=== PATIENT | male | born 1950 | race Caucasian/White ===

== ENCOUNTER 2021-12-31 14:43 | Outpatient (CLI) | payer MEDICARE, SELFPAY ==
[2021-12-31 18:55] LABS: Basophils Percent Auto 0.6 % (0.2-1.2); Eosinophils Absolute Auto 0.2 K/mm3 (0-0.3); Eosinophils Percent Auto 2.5 % (0-4.4); Hematocrit 40.8 % (42.0-52.0); Hemoglobin 14.2 g/dL (14.0-18.0); Lymphocytes Absolute Auto 1.56 K/mm3 (0.9-3.2); Lymphocytes Percent Auto 24.8 % (18.3-44.2); Mean Corpuscular HGB Conc 34.8 g/dl (32-36); Mean Corpuscular Hemoglobin 34.5 pg (26-34); Mean Platelet Volume 10.7 fl (7.4-10.4); Monocytes Absolute Auto 0.8 K/mm3 (0.1-0.6); Monocytes Percent Auto 11.9 % (2.6-8.5); Neutrophils Absolute Auto 3.8 K/mm3 (1.3-6.7); Neutrophils Percent Auto 60.2 % (45.5-73.1); Platelet Count Result 252 k/mm3 (150-375); Red Blood Count 4.12 M/mm3 (4.6-6.20); Red Cell Distribution Width 11.8 % (11.5-14.5); White Blood Count 6.3 K/mm3 (4.5-10.0)
[2021-12-31 19:35] LABS: Vitamin D 25 Hydroxy 55.2 ng/mL
[2021-12-31 21:07] LABS: Alanine Aminotransferase 35 U/L (6-50); Albumin Level 5.3 g/dL (3.5-5.1); Alkaline Phosphatase 82 U/L (38-126); Anion Gap 16 mmol/L (8-16); Aspartate Amino Transferase 42 U/L (17-59); Blood Urea Nitrogen 23 mg/dL (9-20); Calcium 10.5 mg/dL (8.4-10.2); Carbon Dioxide 21 mmol/L (22-30); Chloride 109 mmol/L (98-107); Cholesterol 228 mg/dL (0-200); Estimated Glomerular Filt Rate > 60; Glucose 102 mg/dL (65-110); HDL Direct 56 mg/dL; Potassium 4.8 mmol/L (3.4-5.0); Sodium 146 mmol/L (137-145); Triglycerides 178 mg/dL (<150)
[2021-12-31 21:18] LABS: LDL Cholesterol Direct 98 mg/dL
[2021-12-31 21:36] LABS: Prostate Specific Antigen 1.2 ng/mL (< OR = 4.0)
== END 2021-12-31 14:44 | disposition home or self-care (01) ==
PROVIDERS: PCP Family Medicine; Visit Provider Family Medicine
DX: E78.89 Other lipoprotein metabolism disorders (principal); I10 Essential (primary) hypertension; E55.9 Vitamin D deficiency, unspecified; Z12.5 Encounter for screening for malignant neoplasm of prostate
CPT/HCPCS: 36415; 80053; 80061; 82306; 82607; 84153; 84443; 85025; G0103

== ENCOUNTER 2022-07-01 11:47 | Outpatient (CLI) | payer MEDICARE, SELFPAY ==
[2022-07-01 19:01] LABS: Alanine Aminotransferase 28 U/L (6-50); Albumin Level 4.5 g/dL (3.5-5.1); Alkaline Phosphatase 76 U/L (38-126); Anion Gap 8 mmol/L (8-16); Aspartate Amino Transferase 46 U/L (17-59); Bilirubin,Total 1.2 mg/dL (0.2-1.3); Blood Urea Nitrogen 19 mg/dL (9-20); Carbon Dioxide 28 mmol/L (22-30); Chloride 102 mmol/L (98-107); Estimated Glomerular Filt Rate > 60; Glucose 97 mg/dL (65-110); Sodium 138 mmol/L (137-145)
== END 2022-07-01 11:48 | disposition home or self-care (01) ==
LOC: ANHGOSHLAB 11:49
PROVIDERS: PCP Family Medicine; Visit Provider Family Medicine
DX: E78.5 Hyperlipidemia, unspecified (principal); I10 Essential (primary) hypertension; Z79.899 Other long term (current) drug therapy
CPT/HCPCS: 36415; 80053

== ENCOUNTER 2023-01-13 11:53 | Outpatient (CLI) | payer MEDICARE, SELFPAY ==
[2023-01-13 13:32] LABS: Basophils Percent Auto 0.7 % (0.2-1.2); Eosinophils Absolute Auto 0.2 K/mm3 (0-0.3); Eosinophils Percent Auto 4.1 % (0-4.4); Hematocrit 41.7 % (42.0-52.0); Hemoglobin 14.2 g/dL (14.0-18.0); Immature Granulocyte Absolute 0.01 K/mm3 (0.00-0.031); Immature Granulocyte Percent A 0.2 % (0-0.5); Lymphocytes Absolute Auto 1.41 K/mm3 (0.9-3.2); Lymphocytes Percent Auto 23.9 % (18.3-44.2); Mean Corpuscular HGB Conc 34.1 g/dl (32-36); Mean Corpuscular Volume 99.8 fl (80-100); Mean Platelet Volume 10.9 fl (7.4-10.4); Monocytes Absolute Auto 0.7 K/mm3 (0.1-0.6); Monocytes Percent Auto 11.7 % (2.6-8.5); Neutrophils Absolute Auto 3.5 K/mm3 (1.3-6.7); Neutrophils Percent Auto 59.4 % (45.5-73.1); Platelet Count Result 244 k/mm3 (150-375); Red Blood Count 4.18 M/mm3 (4.6-6.20); Red Cell Distribution Width 11.9 % (11.5-14.5); White Blood Count 5.9 K/mm3 (4.5-10.0)
[2023-01-13 13:50] LABS: Alanine Aminotransferase 30 U/L (6-50); Albumin Level 4.7 g/dL (3.5-5.1); Alkaline Phosphatase 73 U/L (38-126); Anion Gap 10 mmol/L (8-16); Aspartate Amino Transferase 46 U/L (17-59); Bilirubin,Total 1.2 mg/dL (0.2-1.3); Blood Urea Nitrogen 18 mg/dL (9-20); Calcium 9.6 mg/dL (8.4-10.2); Carbon Dioxide 26 mmol/L (22-30); Chloride 102 mmol/L (98-107); Cholesterol 191 mg/dL (0-200); Estimated Glomerular Filt Rate > 60; Glucose 104 mg/dL (65-110); HDL Direct 51 mg/dL; Potassium 4.6 mmol/L (3.4-5.0); Sodium 138 mmol/L (137-145); Triglycerides 175 mg/dL (<150)
[2023-01-13 14:07] LABS: LDL Cholesterol Direct 80 mg/dL
[2023-01-13 15:33] LABS: Vitamin D 25 Hydroxy 47.4 ng/mL
== END 2023-01-13 11:54 | disposition home or self-care (01) ==
LOC: ANHGOSHLAB 11:54
PROVIDERS: PCP Family Medicine; Visit Provider Family Medicine
DX: E78.5 Hyperlipidemia, unspecified (principal); E53.8 Deficiency of other specified B group vitamins; I10 Essential (primary) hypertension; Z12.5 Encounter for screening for malignant neoplasm of prostate; E55.9 Vitamin D deficiency, unspecified; Z00.00 Encounter for general adult medical examination without abnormal findings
CPT/HCPCS: 36415; 80053; 80061; 82306; 82607; 84153; 84443; 85025; G0103

== ENCOUNTER 2023-09-15 11:07 | Outpatient (CLI) | payer MEDICARE, SELFPAY ==
[2023-09-15 18:38] LABS: Basophils Absolute Auto 0.1 K/mm3 (0.0-0.1); Eosinophils Absolute Auto 0.3 K/mm3 (0-0.3); Eosinophils Percent Auto 4.2 % (0-4.4); Hematocrit 37.1 % (42.0-52.0); Hemoglobin 12.9 g/dL (14.0-18.0); Immature Granulocyte Absolute 0.02 K/mm3 (0.00-0.031); Immature Granulocyte Percent A 0.3 % (0-0.5); Lymphocytes Absolute Auto 1.42 K/mm3 (0.9-3.2); Lymphocytes Percent Auto 22.7 % (18.3-44.2); Mean Corpuscular HGB Conc 34.8 g/dl (32-36); Mean Corpuscular Hemoglobin 34.9 pg (26-34); Mean Corpuscular Volume 100.3 fl (80-100); Mean Platelet Volume 11.4 fl (7.4-10.4); Monocytes Absolute Auto 0.7 K/mm3 (0.1-0.6); Monocytes Percent Auto 11.5 % (2.6-8.5); Neutrophils Absolute Auto 3.8 K/mm3 (1.3-6.7); Neutrophils Percent Auto 60.3 % (45.5-73.1); Platelet Count Result 238 k/mm3 (150-375); Red Cell Distribution Width 11.9 % (11.5-14.5); White Blood Count 6.3 K/mm3 (4.5-10.0)
[2023-09-15 18:44] LABS: Alanine Aminotransferase 26 U/L (6-50); Albumin Level 4.6 g/dL (3.5-5.1); Alkaline Phosphatase 68 U/L (38-126); Anion Gap 11 mmol/L (4-12); Aspartate Amino Transferase 39 U/L (17-59); Bilirubin,Total 1.1 mg/dL (0.2-1.3); Blood Urea Nitrogen 28 mg/dL (9-20); Calcium 9.4 mg/dL (8.4-10.2); Carbon Dioxide 29 mmol/L (22-30); Chloride 98 mmol/L (98-107); Cholesterol 219 mg/dL (0-200); Estimated Glomerular Filt Rate > 60; Glucose 106 mg/dL (65-110); HDL Direct 45 mg/dL; Potassium 4.8 mmol/L (3.4-5.0); Sodium 138 mmol/L (137-145); Triglycerides 387 mg/dL (<150)
[2023-09-15 18:55] LABS: LDL Cholesterol Direct 42 mg/dL
[2023-09-18 15:13] LABS: Vitamin D 1,25 (OH)2 Total 43 pg/mL (18-72); Vitamin D2 1,25 (OH)2 <8 pg/mL; Vitamin D3 1,25 (OH)2 43 pg/mL
== END 2023-09-15 11:08 | disposition home or self-care (01) ==
LOC: ANHGOSHLAB 11:08
PROVIDERS: PCP Family Medicine; Visit Provider Nurse Practitioner Family
DX: E78.5 Hyperlipidemia, unspecified (principal); Z13.29 Encounter for screening for other suspected endocrine disorder; I10 Essential (primary) hypertension; E53.8 Deficiency of other specified B group vitamins; E55.9 Vitamin D deficiency, unspecified
CPT/HCPCS: 36415; 80053; 80061; 82607; 82652; 84443; 85025

== ENCOUNTER 2023-10-22 14:50 | Outpatient (CLI) | payer MEDICARE, SELFPAY ==
--- NOTE | ~2023-10-22 | XR_ITS ---
EXAMINATION: XR chest 2V 10/22/2023 15:03 INDICATION: Dyspnea PROCEDURE: 2 view chest COMPARISON: No prior studies for comparison. FINDINGS: The lungs are clear. The cardiomediastinal silhouette is within normal limits. There are no pleural effusions. There is no pneumothorax suspected. There are healed right old rib fractures. Moderate thoracic spondylosis. IMPRESSION: 1: NO ACUTE CARDIOPULMONARY DISEASE. Reviewed, dictated and finalized at location B.
== END 2023-10-22 14:51 | disposition home or self-care (01) ==
PROVIDERS: PCP Family Medicine; Visit Provider Family Medicine
DX: R09.89 Other specified symptoms and signs involving the circulatory and respiratory systems (principal)
CPT/HCPCS: 71046

== ENCOUNTER 2023-10-22 15:03 | Outpatient (CLI) | payer MEDICARE, SELFPAY ==
[2023-10-22 18:46] LABS: Basophils Absolute Auto 0.1 K/mm3 (0.0-0.1); Basophils Percent Auto 0.6 % (0.2-1.2); Eosinophils Absolute Auto 0.2 K/mm3 (0-0.3); Eosinophils Percent Auto 2.1 % (0-4.4); Hematocrit 41.1 % (42.0-52.0); Hemoglobin 13.8 g/dL (14.0-18.0); Immature Granulocyte Absolute 0.02 K/mm3 (0.00-0.031); Immature Granulocyte Percent A 0.2 % (0-0.5); Lymphocytes Percent Auto 19.5 % (18.3-44.2); Mean Corpuscular HGB Conc 33.6 g/dl (32-36); Mean Corpuscular Hemoglobin 34.7 pg (26-34); Mean Corpuscular Volume 103.3 fl (80-100); Mean Platelet Volume 11.1 fl (7.4-10.4); Neutrophils Absolute Auto 5.4 K/mm3 (1.3-6.7); Neutrophils Percent Auto 65.6 % (45.5-73.1); Platelet Count Result 256 k/mm3 (150-375); Red Blood Count 3.98 M/mm3 (4.6-6.20); Red Cell Distribution Width 11.9 % (11.5-14.5); White Blood Count 8.2 K/mm3 (4.5-10.0)
[2023-10-22 19:01] LABS: Alanine Aminotransferase 30 U/L (6-50); Albumin Level 4.7 g/dL (3.5-5.1); Alkaline Phosphatase 78 U/L (38-126); Anion Gap 10 mmol/L (4-12); Aspartate Amino Transferase 46 U/L (17-59); Blood Urea Nitrogen 26 mg/dL (9-20); Calcium 9.4 mg/dL (8.4-10.2); Carbon Dioxide 28 mmol/L (22-30); Chloride 99 mmol/L (98-107); Estimated Glomerular Filt Rate > 60; Glucose 94 mg/dL (65-110); Potassium 4.5 mmol/L (3.4-5.0); Sodium 137 mmol/L (137-145)
[2023-10-22 19:06] LABS: Iron 150 ug/dL (49-181)
[2023-10-22 19:15] LABS: Percent Iron Saturation 54 % (20-50)
[2023-10-22 20:09] LABS: Folic Acid > 20.0 ng/mL (2.76->20)
== END 2023-10-22 15:04 | disposition home or self-care (01) ==
LOC: ANHGOSHLAB 15:04
PROVIDERS: PCP Family Medicine; Visit Provider Family Medicine
DX: D64.9 Anemia, unspecified (principal); R55 Syncope and collapse; R42 Dizziness and giddiness; I10 Essential (primary) hypertension; Z00.00 Encounter for general adult medical examination without abnormal findings
CPT/HCPCS: 36415; 80053; 82607; 82728; 82746; 83540; 83550; 85025

== ENCOUNTER 2023-11-04 10:23 | Outpatient (CLI) | payer MEDICARE, SELFPAY ==
--- NOTE | 2023-11-06 17:07 | WPDHOLTEREM ---
Holter/Event Monitor Holter/Event Monitor Date of procedure: 11/04/23 Holter/Event Procedure: 48 Hr Holter Monitor Indications: Syncope Conclusion: 1. 48 hour holter monitor on 11/04/23. 2. Underlying rhythm is sinus rhythm. HR range 56-115 bpm; average 77 bpm. 3. There are 383 premature supraventricular complexes, 12 supraventricular couplets and 1 supraventricular triplet. No supraventricular tachycardia. 4. There are 1,172 premature ventricular complexes, 81 ventricular bigeminy. No ventricular tachycardia. 5. No sinoatrial or atrioventricular blocks. No significant pauses greater than 2 seconds. 6. No symptoms available for correlation.
== END 2023-11-04 10:24 | disposition home or self-care (01) ==
PROVIDERS: PCP Family Medicine; Visit Provider Family Medicine
DX: R55 Syncope and collapse (principal); R42 Dizziness and giddiness
CPT/HCPCS: 93225; 93226

== ENCOUNTER 2023-11-26 08:17 | Outpatient (CLI) | payer MEDICARE, SELFPAY ==
--- NOTE | ~2023-11-26 | MR_ITS ---
EXAMINATION: MR brain/brain stem wo/w con DATE: 11/26/2023 09:35 INDICATION: Syncope and collapse. TECHNIQUE: Magnetic resonance imaging (MRI) of the brain and brainstem was performed without and with 18 mL MultiHance intravenous contrast. COMPARISON: None. FINDINGS: There are scattered areas of nonspecific increased T2-weighted signal intensity in the cere bral white matter. There is no intracranial hemorrhage, acute infarction, or abnormal intracranial ma ss lesion. The ventricles are normal in size. There are likely changes of ocular lens replacement ebenezer geries. There is mild mucosal thickening in the paranasal sinuses. The mastoid air cells are normal. IMPRESSION: 1. Mild nonspecific cerebral white matter disease, which likely represents chronic small vessel ische alberto disease. Reviewed, dictated and finalized at location A. IMPRESSION: 1. Mild nonspecific cerebral white matter disease, which likely represents green chain puller jayleen small vessel ischemic disease.
--- NOTE | ~2023-11-26 | US_ITS ---
EXAMINATION: US carotid duplex BI DATE: 11/26/2023 09:05 INDICATION: Syncope and collapse. TECHNIQUE: Grayscale, color Doppler, and pulsed Doppler images of the cervical carotid arteries were obtained. The degree of vessel stenosis is placed in one of the following categories: normal, <50%, 5 0-69%, >=70% but less than near-occlusion, near-occlusion, or total occlusion. Note that percent sten osis relative to normal distal artery lumen diameter is indirectly measured from velocity measurement s as described by Khanh, et al. Radiology 2003; 229:340-346. COMPARISON: None. FINDINGS: RIGHT: The right common carotid artery (CCA) peak systolic velocity (PSV) is 80 cm/s. The right internal car otid artery (ICA) PSV is 111 cm/s. The right ICA end-diastolic velocity (EDV) is 31 cm/s. The right I CA/CCA PSV ratio is 1.4. Grayscale and color Doppler images yield an estimate of <50% diameter reduct ion from plaque in the ICA. There is antegrade flow in the right vertebral artery. LEFT: The left CCA PSV is 109 cm/s. The left ICA PSV is 96 cm/s. The left ICA EDV is 38 cm/s. The left ICA/ CCA PSV ratio is 0.9. Grayscale and color Doppler images yield an estimate of <50% diameter reduction from plaque in the ICA. There is antegrade flow in the left vertebral artery. IMPRESSION: 1. <50% stenosis in the right internal carotid artery. 2. <50% stenosis in the left internal carotid artery. Reviewed, dictated and finalized at location A.
== END 2023-11-26 08:18 | disposition home or self-care (01) ==
LOC: ANHIMG 08:20
PROVIDERS: PCP Family Medicine; Visit Provider Family Medicine
DX: R55 Syncope and collapse (principal); R42 Dizziness and giddiness; I65.23 Occlusion and stenosis of bilateral carotid arteries; R90.82 White matter disease, unspecified
CPT/HCPCS: 70553; 93880; A9577

== ENCOUNTER 2023-12-31 08:14 | Outpatient (CLI) | payer MEDICARE, SELFPAY ==
[2024-01-24 11:24] VITALS: BMI 31.9
--- NOTE | 2024-01-24 11:24 | WPDSLEEPSTUD ---
Sleep Study Date of Study: 12/31/23 Ordering Provider: Reg Sosa MD Interpreting Physician: Radha Bill DO Sleep Study Type: Split Polysomnogram Height: 1.7 m Weight: 92.533 kg Body Mass Index: 31.9 Neck Circumference (inches): 17 [place]: 3 Reason for Sleep Study Snoring Sleep History The patient is a 73-year-old that had sleep study ordered by his primary care physician for evaluation of sleep apnea the patient denies awakening from sleep short of breath. He denies awakening at night with heartburn, belching or cough. He occasionally snores and 8 is occasionally loud enough that others complain. He occasionally has trouble sleeping when he has a cold. He denies waking up gasping for air throughout the night. He denies having breathing problems at night observed by himself or others. He rarely sweats excessively at night. He denies having heart palpitations or irregular heartbeats during the night. He occasionally falls asleep during the day but never while driving. He denies sleep paralysis, cataplexy and hypnagogic / hypnopompic hallucinations. He denies having trouble at school or work due to sleepiness. He denies feeling afraid of going to sleep. He denies having nightmares. He frequently remembers his dreams. He occasionally has thoughts racing through his mind. He rarely feels sad or depressed. He frequently has anxiety. He frequently has muscular tension. He occasionally notices parts of his body jerk and occasionally kicks during the night. He frequently has crawling and aching feelings in his legs and occasionally has leg pain during the night. He occasionally grinds his teeth during sleep but never awakens with morning jaw pain. He is occasionally bothered by pain during the day but rarely awakened by pain during the night. He frequently wakes up feeling stiff in the morning. He frequently wakes up with sore or achy muscles. He occasionally wakes up with pain in the neck spine or other joints. He goes to bed at 10:00 p.m. on both weekdays and weekends. It takes him 10-30 minutes to fall asleep. He wakes up 3 times throughout the night to urinate and is able to fall back asleep within 20 minutes. He wakes up at 7:30 a.m. on both weekdays and weekends. He typically gets 8 hours of sleep per night. He was stays in bed for 5 minutes after waking up in the morning. He currently lives with his . He denies consuming any caffeinated beverages within 2 hours of bedtime. He will engage in physical exercise before bedtime. He will watch television before falling asleep. He denies taking naps in the afternoon or the evening. He denies consuming any caffeinated beverages throughout the day. He consumes 3 alcoholic beverages per day. He is a former smoker. He denies recreational drug use. [facility] Past Medical History Medical History Dyslipidemia Essential (primary) hypertension Normal colonoscopy (~2017) Surgical History Surgical History H/O cataract removal with insertion of prosthetic lens b/l - 11/2016 History of carpal tunnel release of both wrists (~2015) Hx of appendectomy (~1961) Family History Family History Father Family history of diabetes mellitus in first degree relative Family history of heart disease in male family member before age 55 Diabetes mellitus Family history of cardiovascular disease Social History Social History Social History: Former smoker Smoking packs per day: 0.5 Smoking cigarettes per day: 10.0 Years smoked: 8 Smoking pack-years: 4.00 Smoking status: Former smoker (light smoker) Tobacco type: cigarettes Smoking end date: 02/16/15 Alcohol intake: current Drinks per week: 20 Substance use: never Do You Feel Safe in your Home?: Yes Lack of Transportation: No Lack of Food: Never True Current Housing: I Have Housing Concerned About Future Housing: No Difficulty Paying Gas/Electric Bills: No Difficulty Paying for Meds: No Currently Unemployed: No Education: High School Diploma/GED Difficulty w/ Childcare or Family Care: No Medications Home Medications Medication Instructions Recorded Confirmed Type lisinopril 20 1 tablet PO DAILY #90 tabs 09/09/23 12/07/23 Rx mg-hydrochlorothiazide 25 mg tablet atorvastatin 20 mg tablet 20 mg PO QHS #90 tabs 09/10/23 12/07/23 Rx metoprolol succinate 50 mg 50 mg PO DAILY #90 tabs 09/10/23 12/07/23 Rx tablet,extended release 24 hr eszopiclone 2 mg tablet (Lunesta) 2 mg PO QHS #1 tablet 11/10/23 12/07/23 Rx Sleep Procedure A full night split study using the [employer] multi-channel system recorded the standard physiologic parameters including EEG, EOG, submentalis EMG, anterior tibialis EMG, EKG, body position, nasal and oral airflow using nasal pressure sensor and thermistor.? Respiratory parameters of chest and abdominal movements were recorded with Respiratory Inductance Plethysmography belts. Oxygen saturation was recorded by pulse oximetry. Video monitoring was also performed. Sleep stages, periodic limb movements, and EEG arousals were scored in 30 second epochs according to the criteria of the AASM Scoring Manual. The Apnea-Hypopnea Index was calculated using [facility] guidelines for definition of hypopnea with 4% O2 desaturations while scoring respiratory events. Sleep Architecture During the diagnostic portion of the study, the total recording time was 280.3 minutes. The total sleep time was 160.5 minutes. Sleep latency was 77.2 minutes.? REM latency was 152.5 minutes. Sleep Efficiency was 57.3%. The patient had 11 awakenings for an awakening index of 4.1. Wake after sleep onset time was 42.5 minutes. The patient spent 19.0 minutes, 11.8% of total sleep time in Stage N1. The patient spent 121.5 minutes, 75.7% in Stage N2. The patient spent 0.0 minutes, 0.0% in Stage N3. The patient spent 20.0 minutes, 12.5% in Stage REM sleep. At 01:59:59 AM the patient was placed on PAP treatment and was titrated at pressures ranging from 5 cm H20 up to 7 cm H20. During the treatment portion of the study, the total recording time was 253.6 minutes.? The total sleep time was 174.0 minutes. Sleep latency was 22.5 minutes. REM latency was 78.5 minutes. Sleep Efficiency was 68.6%. Wake after Sleep Onset time was 57.0 minutes. The patient spent 18.5 minutes, 10.6% of total sleep time in Stage N1. The patient spent 99.5 minutes, 57.2% in Stage N2. The patient spent 0.0 minutes, 0.0% in Stage N3. The patient spent 56.0 minutes, 32.2% in Stage REM. Respiratory Analysis During the diagnostic portion of the study, the patient had 17 hypopneas and 15 obstructive apneas for an overall Apnea Hypopnea Index of 12.0 events per hour. The REM Apnea Hypopnea Index was 63.0. The NREM Apnea Hypopnea Index was 4.7. The patient had a Central Apnea Hypopnea Index of 0. There was no evidence of Ap-Cao Respirations. During the treatment portion of the study, the patient had 11 hypopneas for an overall Apnea Hypopnea Index of 3.8 events per hour. The REM Apnea Hypopnea Index was 4.3. The NREM Apnea Hypopnea Index was 3.6. The patient had a Central Apnea Hypopnea Index of 0. There was no evidence of Ap-Coa Respirations. The patient was started on CPAP 5 cm H2O titrated to CPAP 7 cm H2O due to hypopneas. The patient was able to fall asleep starting on CPAP 5 cm H2O. The patient was able to achieve REM sleep starting on CPAP 5 cm H2O. The patient was able to achieve a residual AHI less than 5 with both NREM and REM sleep in the supine position on the final pressure setting. On CPAP 7 cm H2O, the patient spent 41 minutes in NREM and 29.5 minutes in REM with 2 hypopneas, resulting in an AHI of 1.7. The patient had a sleep efficiency of 56% on this pressure setting. Arousals During the diagnostic portion of the study, there were a total of 79 arousals for an arousal index of 29.5.? There were 8 respiratory arousals for an index of 3.0. There were 65 periodic limb movement arousals for an index of 24.3.? There were 0 isolated limb movement arousals for an index of 0. There were 7 spontaneous arousals for an index of 2.6. During the treatment portion of the study, there were a total of 34 arousals for an index of 11.7.? There were 0 respiratory arousals for an index of 0. There were 31 periodic limb movement arousals for an index of 10.7.? There were 0 isolated limb movement arousals for an index of 0. There were 3 spontaneous arousals for an index of 1.0. Periodic Limb Movements During the diagnostic portion of the study, the patient had 9 isolated limb movements with an index of 3.4. The patient had 570 periodic limb movements with an index of 213.1, which is elevated (normal < 15). The patient had a total of 579 limb movements with a total limb movement index of 216.4. During the treatment portion of the study, the patient had 0 isolated limb movements with an index of 0. The patient had 331 periodic limb movements with an index of 114.1, which is elevated (normal < 15). The patient had a total of 331 limb movements with a total limb movement index of 114.1. Oximetry Data During the diagnostic portion of the study, the patient had an average oxygen saturation of 93.3% in wake with a minimum oxygen saturation of 86% and a maximum oxygen saturation of 98%. The patient had an average oxygen saturation of 93.3% in sleep with a minimum oxygen saturation of 70.0% and a maximum oxygen saturation of 98.0%. The patient had 33 oxygen desaturations resulting in an Oxygen Desaturation Index of 12.3. The patient spent 5.8 minutes, 2.2% of total sleep time with an oxygen saturation less than 88%. During the treatment portion of the study, the patient had an average oxygen saturation of 94.3% in wake with a minimum oxygen saturation of 88.0% and a maximum oxygen saturation of 98.0%. The patient had an average oxygen saturation of 93.1% in sleep with a minimum oxygen saturation of 86.0% and a maximum oxygen saturation of 98.0%. The patient had 12 oxygen desaturations resulting in an Oxygen Desaturation Index of 4.1. The patient spent 0.8 minutes, 0.3% of total sleep time with an oxygen saturation less than 88%. Snoring Profile Mild snoring was present in the baseline portion of the study. Cardiac Profile The EKG lead shows normal sinus rhythm. No arrhythmias or PVCs were seen. During the diagnostic portion of the study, the average pulse rate was 74.8 bpm.? The minimum pulse rate was 54.0 bpm. The maximum pulse rate was 95.0 bpm. During the treatment portion of the study, the average pulse rate was 67.4 bpm.? The minimum pulse rate was 60.0 bpm. The maximum pulse rate was 89.0 bpm. EEG Profile No signs of seizure activity seen. Assessment and Plan Assessment and Plan (1) KAY (obstructive sleep apnea): Code(s): G47.33 - Obstructive sleep apnea (adult) (pediatric) Status: Acute Assessment and Plan: In the baseline portion of the study, the patient had an overall AHI of 12 with desaturation down to 70%. This is consistent with mild sleep apnea. Due to the patient's hypertension, he qualifies for PAP therapy. The patient was started on CPAP 5 cm H2O titrated to CPAP 7 cm H2O due to hypopneas. The patient's sleep apnea resolved on the final pressure but his sleep efficiency was relatively low. I recommend that the patient be prescribed CPAP 6 cm H2O, size medium Resmed N30i mask, CPAP filters/tubing and heated humidity. This should be used with all episodes of sleep.? Compliance should be reviewed within 31-90 days of starting therapy for usage greater than 4 hours per night greater than 70% of the nights. The patient should be asked about symptoms such as?excessive daytime sleepiness, quality of sleep, decreased nocturia, increased?mental functioning such as memory, mood, and concentration. (2) PLMD (periodic limb movement disorder): Code(s): G47.61 - Periodic limb movement disorder Status: Acute Assessment and Plan: The patient had a significant number of limb movements during the study with the majority being periodic in nature. Approximately 10% of the periodic limb movements caused arousals in his sleep. The patient's sleep history is highly suggestive of Restless Leg Syndrome. I recommend that the patient have a serum ferritin drawn for evaluation of iron deficiency anemia. If the patient has a serum ferritin less than 75 ng/mL, I recommend starting a daily iron supplement and a Vitamin C supplement for better absorption. If the serum ferritin is greater than 75 ng/mL, I recommend starting a dopamine agonist and titrating the dose until symptoms resolve. There are nonpharmacological methods to treat limb movements including daily exercise, stretching calf muscles before bed, avoiding excessive amounts of caffeine and alcohol, vitamin B supplementation, magnesium lotion massaged into legs before bed, and use of a weighted blanket. Data The data obtained during this sleep study is adequate for interpretation. Certification This sleep study has been reviewed by a board certified sleep medicine physician.
== END 2024-01-01 06:42 | disposition home or self-care (01) ==
LOC: ANHCSM 08:15
PROVIDERS: PCP Family Medicine; Visit Provider Family Medicine
DX: G47.33 Obstructive sleep apnea (adult) (pediatric) (principal); G47.61 Periodic limb movement disorder; G47.10 Hypersomnia, unspecified; R40.0 Somnolence
CPT/HCPCS: 95811

== ENCOUNTER 2024-03-02 11:34 | Outpatient (CLI) | payer MEDICARE, SELFPAY ==
[2024-03-02 15:08] LABS: Basophils Absolute Auto 0.1 K/mm3 (0.0-0.1); Basophils Percent Auto 0.7 % (0.2-1.2); Eosinophils Absolute Auto 0.3 K/mm3 (0-0.3); Eosinophils Percent Auto 4.5 % (0-4.4); Hematocrit 41.3 % (42.0-52.0); Hemoglobin 14.1 g/dL (14.0-18.0); Immature Granulocyte Absolute 0.01 K/mm3 (0.00-0.031); Immature Granulocyte Percent A 0.1 % (0-0.5); Lymphocytes Absolute Auto 1.47 K/mm3 (0.9-3.2); Lymphocytes Percent Auto 21.4 % (18.3-44.2); Mean Corpuscular HGB Conc 34.1 g/dl (32-36); Mean Corpuscular Hemoglobin 33.4 pg (26-34); Mean Corpuscular Volume 97.9 fl (80-100); Mean Platelet Volume 11.2 fl (7.4-10.4); Monocytes Absolute Auto 0.7 K/mm3 (0.1-0.6); Monocytes Percent Auto 10.3 % (2.6-8.5); Neutrophils Absolute Auto 4.3 K/mm3 (1.3-6.7); Platelet Count Result 265 k/mm3 (150-375); Red Blood Count 4.22 M/mm3 (4.6-6.20); Red Cell Distribution Width 11.9 % (11.5-14.5); White Blood Count 6.9 K/mm3 (4.5-10.0)
[2024-03-02 16:15] LABS: Alanine Aminotransferase 33 U/L (6-50); Albumin Level 4.7 g/dL (3.5-5.1); Alkaline Phosphatase 80 U/L (38-126); Anion Gap 9 mmol/L (4-12); Aspartate Amino Transferase 69 U/L (17-59); Bilirubin,Total 1.4 mg/dL (0.2-1.3); Blood Urea Nitrogen 20 mg/dL (9-20); Calcium 9.6 mg/dL (8.4-10.2); Carbon Dioxide 26 mmol/L (22-30); Chloride 102 mmol/L (98-107); Cholesterol 192 mg/dL (0-200); Estimated Glomerular Filt Rate > 60; Glucose 104 mg/dL (65-110); HDL Direct 41 mg/dL; Potassium 4.1 mmol/L (3.4-5.0); Sodium 137 mmol/L (137-145); Triglycerides 271 mg/dL (<150)
[2024-03-02 16:29] LABS: LDL Cholesterol Direct 66 mg/dL
[2024-03-02 16:48] LABS: Prostate Specific Antigen 1.2 ng/mL (< OR = 4.0)
[2024-03-02 17:39] LABS: Vitamin D 25 Hydroxy 55.1 ng/mL
[2024-03-02 17:53] LABS: Thyroid Stimulating Hormone Reflex 0.896 uIU/mL (0.465-4.68)
[2024-03-02 19:40] LABS: Hemoglobin A1C 5.1 % (<5.7)
== END 2024-03-02 11:35 | disposition home or self-care (01) ==
LOC: ANHGOSHLAB 11:35
PROVIDERS: PCP Family Medicine; Visit Provider Family Medicine
DX: I10 Essential (primary) hypertension (principal); R73.9 Hyperglycemia, unspecified; G47.61 Periodic limb movement disorder; E55.9 Vitamin D deficiency, unspecified; Z12.5 Encounter for screening for malignant neoplasm of prostate; Z00.00 Encounter for general adult medical examination without abnormal findings; E53.8 Deficiency of other specified B group vitamins; E78.5 Hyperlipidemia, unspecified; D64.9 Anemia, unspecified
CPT/HCPCS: 36415; 80053; 80061; 82306; 82607; 82728; 83036; 84153; 84443; 85025; G0103

== ENCOUNTER 2024-05-31 14:32 | Outpatient (CLI) | payer MEDICARE, SELFPAY ==
[2024-05-31 14:51] LABS: Basophils Absolute Auto 0.1 K/mm3 (0.0-0.1); Basophils Percent Auto 0.6 % (0.2-1.2); Eosinophils Absolute Auto 0.3 K/mm3 (0-0.3); Eosinophils Percent Auto 3.4 % (0-4.4); Hematocrit 37.2 % (42.0-52.0); Hemoglobin 13.4 g/dL (14.0-18.0); Immature Granulocyte Absolute 0.03 K/mm3 (0.00-0.031); Immature Granulocyte Percent A 0.4 % (0-0.5); Lymphocytes Absolute Auto 1.61 K/mm3 (0.9-3.2); Lymphocytes Percent Auto 20.1 % (18.3-44.2); Mean Corpuscular Hemoglobin 34.4 pg (26-34); Mean Corpuscular Volume 95.4 fl (80-100); Mean Platelet Volume 9.4 fl (7.4-10.4); Monocytes Absolute Auto 0.9 K/mm3 (0.1-0.6); Monocytes Percent Auto 11.6 % (2.6-8.5); Neutrophils Absolute Auto 5.1 K/mm3 (1.3-6.7); Neutrophils Percent Auto 63.9 % (45.5-73.1); Platelet Count Result 287 k/mm3 (150-375); Red Cell Distribution Width 11.5 % (11.5-14.5)
--- OUTSIDE RECORDS SUMMARY | 2024-05-31 15:41 | XMS_ITS | Clinical Summary ---
Author Organization [facility] Wilburxochitl decker Alondra Address [address] [place] [address] Care Team Providers Care Lead C Developer Name Role Phone Unavailable Primary Care Provider Unavailabl e Allergies No known active allergies Medications lisinopril-hydr oCHLOROthiazide (ZESTORETIC) 20-25 mg tablet Take 1 Tablet by mouth 2 times daily. 5 Active metoprolol succinate (TOPROL XL) 50 mg Extended Release 24 hour tablet Take 50 mg by mouth daily. 5 Active rOPINIRole (REQUIP) 0.5 mg tablet Take 0.5 mg by mouth 3 times daily. 5 Active atorvastatin (LIPITOR) 20 mg tablet Take 20 mg by mouth daily. 5 Active fenofibrate (LOFIBRA) 160 mg Tablet 160 mg by See Admin Instructions route daily. 5 Active Active Problems No known active problems Encounters Date Type Department Care Team Description 05/31/2024 1:30 PM CDT Office Visit [facility] Oncology and Hematology - [place] [address] [facility] [address] [place] [address] Kalia Fonseca MD Iron overload (Primary Dx) from Last 3 Months Family History Medical History Relation Name Comments No Known Problems Brother 1 No Known Problems Brother 2 Diabetes Father No Known Problems Mother No Known Problems Sister 1 No Known Problems Sister 2 No Known Problems Sister 3 No Known Problems Sister 4 Relation Name Status Comments Brother 1 Alive Brother 2 Father Mother Sister 1 Alive Sister 2 Sister 3 Sister 4 Social History Tobacco Use Types Packs/Day Years Used Date Smoking Tobacco: Never Smokeless Tobacco: Never Tobacco Cessation:Counseling Given: Not Answered Alcohol Use Standard Drinks/Week Comments Yes 4 (1 standard drink = 0.6 oz pur e alcohol) Everyday Sex and Gender Information Value Date Recorded Sex Assigned at Not on file Legal Sex Male 3:27 PM [employer] Gender Identity Not on file Sexual Orientation Not on file Last Filed Vital Signs Vital Sign Reading Time Taken Comments Blood Pressure 129/64 05/31/2024 1:30 PM CDT Pulse 71 05/31/2024 1:30 PM CDT Temperature 36.3 C (97.3 F) 05/31/2024 1:30 PM CDT Respiratory Rate 15 05/31/2024 1:30 PM CDT Oxygen Saturation 96% 05/31/2024 1:30 PM CDT Inhaled Oxygen Concentration - - Weight 93.4 kg (205 lb 12.8 oz) 05/31/2024 1:30 PM CDT Height 170.2 cm (5' 7 ) 05/31/2024 1:30 PM CDT Body Mass Index 32.23 05/31/2024 1:30 PM CDT Plan of Treatment Upcoming Encounters Date Type Department Care Team (Late st Contact Info) Description 06/21/2024 4:00 PM CDT Telephone Check Up [facility] Oncology and Hematology - [place] [address] [facility] [address] [place] [address] Kalia Fonseca MD [address] [place] [address] Health Maintenance Due Date Last Done Comments DTAP/TDAP/TD VACCINES (1 - Tdap) 12/18/1970 COLORECTAL SCREENING 12/18/1996 Colorectal Cancer Screening 12/18/1996 FIT-DNA Q 3 years 12/18/1996 FIT/FOBT Q 1 year 12/18/1996 Flex Sig/CT Colonography Q 5 years 12/18/1996 PNEUMOCOCCAL VACCINE 50+ YEARS (1 of 1 - PCV) 12/19/19 02 ZOSTER VACCINE (1 of 2) 12/18/2001 INFLUENZA VACCINE (#1) 2023 [place]) Prev entative Visit/Annual Wellness Visit 02/17/2024 RSV VACCINE (60+ or ) (1 - 1-dose 75+ series) 12/18/2026 Insurance [employer] PPO [facility]
--- OUTSIDE RECORDS SUMMARY | 2024-05-31 15:41 | XMS_ITS | Encounter Summary ---
Author Organization [facility] AL[facility] Address [address] [place] [address] Care Team Providers Care Cosmetics Counter Manager Name Role Phone Unavailable Primary Care Provider Unavailabl e Reason for Referral * Laboratory Services (Routine) - Open Specialty Diagnoses / Procedures Referred By Gianna t Referred To Contact Diagnoses Iron overload Procedures HEMOCHROMATOSIS GENOTYPE Kalia Fonseca MD [address] [place] [phone] Phone: tel: fax: Referral ID Status Reason Start Date Expiration Date Visits Re quested Visits Authorized [id number] Open 05/31/2024 07/01/2025 1 1 Reason for Visit * Reason Comments Establish Care Encounter Details Date Type Department Care Team (Late st Contact Info) Description 05/31/2024 1:30 PM CDT Office Visit [facility] Oncology and Hematology - Feng [address] [place] [address] [address] [place] [address] Kalia Fonseca MD [facility] [address] [place] [address] Iron overload (Primary Dx) Social History Tobacco Use Types Packs/Day Years Used Date Smoking Tobacco: Never Smokeless Tobacco: Never Tobacco Cessation:Counseling Given: Not Answered Alcohol Use Standard Drinks/Week Comments Yes 4 (1 standard drink = 0.6 oz pur e alcohol) Everyday Sex and Gender Information Value Date Recorded Sex Assigned at Not on file 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 Problem list There is no problem list on file for this patient. Previous TREATMENT ? Measurable Disease ? Reason for Visit Yuval Quach is a 73 y.o. male who was referred for consultation for elevated ferritin. History of present illness This is a pleasant 73-year-old male with history of hypertension, hyperlipidemia, restless leg syndrome, obstructive sleep apnea and history of COVID referred to me for elevated ferritin. He drinks a couple of beers a day and has been doing it for more than 50 years duration. He denies any history of liver disease. Denies any chest pain and shortness of breath. Weight and appetite stable. Patient had labs done on March 02 that showed ferritin of 324. He denies any history of liver disease. Denies any other new complaints. Past Medical History Past Medical History: Diagnosis Date Hyperlipidemia Hypertension Sleep apnea Restless leg syndrome History of COVID infection Surgical History Past Surgical History: Procedure Laterality Date HX APPENDECTOMY 1960 HX CARPAL TUNNEL RELEASE 2015 HX CATARACT REMOVAL 2014 Medications Current Outpatient Medications Medication Sig Dispense Refill lisinopril-hydroCHLOROthiazide (ZESTORETIC) 20-25 mg tablet Take 1 Tablet by mouth 2 times daily. metoprolol succinate (TOPROL XL) 50 mg Extended Release 24 hour tablet Take 50 mg by mouth daily. rOPINIRole (REQUIP) 0.5 mg tablet Take 0.5 mg by mouth 3 times daily. atorvastatin (LIPITOR) 20 mg tablet Take 20 mg by mouth daily. fenofibrate (LOFIBRA) 160 mg Tablet 160 mg by See Admin Instructions route daily. No current facility-administered medications for this visit. Allergies No Known Allergies Immunizations: There is no immunization history on file for this patient. Family History Family History Problem Relation Name Age of Onset Diabetes Father No Known Problems Mother No Known Problems Brother No Known Problems Brother No Known Problems Sister No Known Problems Sister No Known Problems Sister No Known Problems Sister Social History Social History Tobacco Use Smoking status: Never Smokeless tobacco: Never Substance Use Topics Alcohol use: Yes Alcohol/week: 4.0 standard drinks of alcohol Types: 4 Cans of beer per week Comment: Everyday Review of Systems Constitutional: Patient did not mention fever; no night sweats; no anorexia; no weight loss; no fatique NEENT: Patient did not mention headache; no change in vision; no change in hearing; no sore throat;no dysphagia Respiratory: Patient did not mention shortness of breath; no pleuritic chest pain; no cough; no hemoptysis Cardiac: Patient did not mention cardiac-like chest pain; no palpitations; no orthopnea; no PND; noDOE GI: Patient did not mention abdominal pain; no nausea; no vomiting; no diarrhea; no hematochezia; no melena : Patient did not mention dysuria; no frequency; no hesitancy; no hematuria ROOM SERVER: Musculosketetal: Patient did not mention bone pain; no arthralgia; no joint swelling; no myalgia; Skin: Patient did not mention pruritis; no rash; no petechiae; no ecchymoses Endocrine: Patient did not mention polydipsia; no polyuria; no unusual weight gain Neuro: Patient did not mention headache; no change in vision; no sensory changes; no muscle weakness; no confusion; no seizures Psych: Patient did not mention anxiety; no depression; Physical Exam Vitals: As per nursing note Constitutional: Well developed, well nourished, no acute distress, non-toxic appearance Teeth and gum. No signs of infection or swelling. Eyes: PERRL, conjunctiva normal HEENT: Atraumatic, external ears normal, nose normal, oropharynx moist, no pharyngeal exudates. no sinus tenderness Neck- normal range of motion, no tenderness, supple Respiratory: No respiratory distress, normal breath sounds, no rales, no wheezing Cardiovascular: Normal rate, normal rhythm, no murmurs, no gallops, no rubs GI: Soft, nondistended, normal bowel sounds, nontender, no splenomegaly, no hepatomegaly, no mass, no rebound, no guarding : No costovertebral angle tenderness Musculoskeletal: No edema, no tenderness, no deformities. Back- no tenderness Integument: Well hydrated, no rash, Digits and nails inspection normal Lymphatic: No lymphadenopathy noted Neurologic: Alert & oriented x 3, CN 2-12 normal, normal motor function, normal sensory function, no focal deficits noted Psychiatric: Speech and behavior appropriate ? labs No results found for this or any previous visit (from the past 24 hours). Labs from March 02, 2024 showed ferritin 324 total bilirubin 1.4 AST 69 ALT 33 creatinine 0.8 WBC6.9 hemoglobin 14.1 hematocrit 41.3 platelets 265 Pathology ? Imaging & Other Studies Performance Status? Assessment / Plan: ? Elevated ferritin. Patient is a pleasant 73-year-old slightly obese male with history of hypertension, hyperlipidemia, obstructive sleep apnea, restless leg syndrome and history of COVID. He denies any history of liver disease. He drinks couple of beers a day for more than 50 years duration. Patient denies any recent weight gain. Recent labs showed elevated serum ferritin and elevated liver enzymes. I have reviewed the diagnosis of iron overload which could be secondary to hemochromatosis versus alcohol abuse. In this case likely secondary to alcohol intake. I will order the workup that will include CBC, CMP, liver profile, iron studies and hemochromatosis genetic testing. Based on the results we will decide about phlebotomy to keep ferritin less than 200. I have strongly recommended him to lose weight and abstinence from drinking. He will also avoid iron containing food. Phone visit with me in 3 weeks. I have answered all questions to patient and the daughter satisfaction. Hyperlipidemia. Patient is on Lipitor. Hypertension. He is on Toprol and Zestril. Restless leg syndrome. Patient is on Requip. Thank you very much for allowing me to participate in Yuval Quach's evaluation and management. Please feel free to contact if I can be of any further assistance in your patient???s care requiring hematology or oncology evaluation. Sincerely, ? ? Kalia Fonseca M.D. cell TOBACCO COUNSELING He is not a tobacco/nicotine user. Kalia Fonseca MD ,05/31/2024 2:52 PM ? Total time spent 60 minutes, two third of the total time spent counseling patient [id number]. CC:?Ventura Sosa MD documented in this encounter Plan of Treatment Upcoming Encounters Date Type Department Care Team (Late st Contact Info) Description 06/21/2024 4:00 PM CDT Telephone Check Up [facility] Oncology and Hematology - Feng [address] [facility] [address] [place] [address] Kalia Fonseca MD [address] [facility] [address] [place] [address] Scheduled Orders Name Type Priority Associated Diagnoses Orde r Schedule CBC WITH DIFFERENTIAL Lab Stat Iron overload Expected: 05/31/2024, Expires: 05/31/2025 COMPREHENSIVE METABOLIC PANEL Lab Stat Iron overload Expected: 05/31/2024, Expires: 05/31/2025 FERRITIN Lab Routine Iron overload Expected: 05/31/2024, Expires: 05/31/2025 IRON, TIBC, AND PERCENT SATURATION Lab Routine Iron overload Expected: 05/31/2024, Expires: 05/31/2025 HEMOCHROMATOSIS GENOTYPE Lab Routine Iron overload Ordered: 05/31/2024 documented as of this encounter Visit Diagnoses Diagnosis Iron overload- Primary Other disorders of iron metabolism documented in this encounter
--- OUTSIDE RECORDS SUMMARY | 2024-05-31 15:41 | XMS_ITS | Clinical Summary ---
Author Organization [facility] Address [address] [place] [address] Care Team Providers Care Geothermal Operations Engineer Name Role Phone Unavailable Primary Care Provider Unavailabl e Social History Tobacco Use Types Packs/Day Years Used Date Smoking Tobacco: Never Assessed Sex and Gender Information Value Date Recorded Sex Assigned at Not on file Legal Sex Male 7:45 PM CDT Gender Identity Not on file Sexual Orientation Not on file Plan of Treatment Health Maintenance Due Date Last Done Comments Colorectal Cancer Screening Colonoscopy (10 Years) 1950 Hepatitis C 12/18/1969 DTaP, Tdap and Td Vaccines ( 1 - Tdap) 12/18/1970 Zoster Vaccines (1 of 2) 12/18/2001 Pneumococcal Vaccine: 50+ Ye ars (1 of 1 - PCV) 12/18/2016 COVID-19 Vaccine ( - 2023-2 5 season) 2023 RSV Immunization or 60+ Years (1 - 1-dose 75+ series) 12/18/2026 Meningococcal B Vaccine Aged Out No l onger eligible based on patient's age to complete this topic Meningococcal Vaccine Aged Out No anuradha jean claude eligible based on patient's age to complete this topic RSV Immunizations Under 20 Months Aged Out No longer eligible based on patient's age to complete this topic
[2024-05-31 16:34] LABS: Iron 169 ug/dL (49-181)
[2024-05-31 16:40] LABS: Alanine Aminotransferase 28 U/L (6-50); Albumin Level 4.8 g/dL (3.5-5.1); Alkaline Phosphatase 65 U/L (38-126); Anion Gap 10 mmol/L (4-12); Aspartate Amino Transferase 51 U/L (17-59); Bilirubin,Total 1.1 mg/dL (0.2-1.3); Blood Urea Nitrogen 26 mg/dL (9-20); Calcium 9.5 mg/dL (8.4-10.2); Carbon Dioxide 26 mmol/L (22-30); Chloride 98 mmol/L (98-107); Estimated Glomerular Filt Rate > 60; Glucose 92 mg/dL (65-110); Potassium 3.8 mmol/L (3.4-5.0); Sodium 134 mmol/L (137-145)
[2024-05-31 16:44] LABS: Percent Iron Saturation 55 % (20-50)
== END 2024-05-31 14:33 | disposition home or self-care (01) ==
LOC: ANHLAB 14:33
PROVIDERS: PCP Family Medicine; Visit Provider Internal Medicine Hematology & Oncology
DX: E83.19 Other disorders of iron metabolism (principal)
CPT/HCPCS: 36415; 80053; 81256; 82728; 83540; 83550; 85025

== ENCOUNTER 2024-07-04 10:23 | Outpatient (CLI) | payer MEDICARE, SELFPAY ==
[2024-07-04 10:36] LABS: Basophils Absolute Auto 0.1 K/mm3 (0.0-0.1); Basophils Percent Auto 1.1 % (0.2-1.2); Eosinophils Absolute Auto 0.5 K/mm3 (0-0.3); Eosinophils Percent Auto 8.3 % (0-4.4); Hematocrit 35.1 % (42.0-52.0); Hemoglobin 12.2 g/dL (14.0-18.0); Immature Granulocyte Absolute 0.02 K/mm3 (0.00-0.031); Immature Granulocyte Percent A 0.4 % (0-0.5); Lymphocytes Absolute Auto 1.29 K/mm3 (0.9-3.2); Lymphocytes Percent Auto 23.2 % (18.3-44.2); Mean Corpuscular HGB Conc 34.8 g/dl (32-36); Mean Corpuscular Hemoglobin 33.6 pg (26-34); Mean Corpuscular Volume 96.7 fl (80-100); Mean Platelet Volume 9.4 fl (7.4-10.4); Monocytes Absolute Auto 0.8 K/mm3 (0.1-0.6); Platelet Count Result 288 k/mm3 (150-375); Red Blood Count 3.63 M/mm3 (4.6-6.20); Red Cell Distribution Width 11.3 % (11.5-14.5); White Blood Count 5.6 K/mm3 (4.5-10.0)
--- OUTSIDE RECORDS SUMMARY | 2024-07-04 10:59 | XMS_ITS | Clinical Summary ---
Author Organization [facility] Kayleigh decker Alondra Address [address] [place] [address] Care Team Providers Care Blending Machine Feeder Name Role Phone Unavailable Primary Care Provider [...] Encounters Date Type Department Care Team Description 06/21/2024 4:00 PM CDT Telephone Check Up [facility] Oncology and Hematology - [address] [place] [address] Kalia Fonseca MD Iron overload (Primary Dx) 06/07/2024 External Device Data STL ABSTRACTION Provider, Abstract 06/07/2024 External Device Data STL ABSTRACTION Provider, Abstract 06/07/2024 External Device Data STL ABSTRACTION Provider, Abstract 06/06/[address] [facility] Oncology and Hematology - [address] [place] [address] Kalia Fonseca MD 06/01/[address] [facility] Oncology and Hematology - [address] [place] [address] Kalia Fonseca MD 05/31/2024 1:30 PM CDT Office Visit 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 Oncology and Hematology - [address] [place] [address] Kalia Fonseca MD [address] [facility] [address] [place] [address] Health Maintenance Due Date Last Done Comments DTAP/TDAP/TD VACCINES (1 - Tdap) 12/18/1970 COLORECTAL SCREENING 12/18/1996 Colorectal Cancer Screening 12/18/1996 FIT-DNA Q 3 years 12/18/1996 FIT/FOBT Q 1 year 12/18/1996 Flex Sig/CT Colonography Q 5 years 12/18/1996 PNEUMOCOCCAL VACCINE 50+ YEARS (1 of 1 - PCV) 12/19/19 02 ZOSTER VACCINE (1 of 2) 12/18/2001 INFLUENZA VACCINE (#1) 2023 [place] Prev entative Visit/Annual Wellness Visit 02/17/2024 RSV VACCINE (60+ or ) (1 - 1-dose 75+ series) 12/18/2026 Procedures Procedure Name Priority Date/Time Associated Diagnosis Comments IRON, TIBC, AND PERCENT SATURATION Routine 05/31/2024 9:03 AM CDT CBC WITH AUTODIFFERENTIAL Routine 2024 8:49 AM CDT from Last 3 Months Results * IRON, TIBC, AND PERCENT SATURATION (05/31/2024 9:03 AM CDT) Blood Kalia Fonseca MD CHEMISTRY ORDERABLES Final Resu lt * CBC WITH AUTODIFFERENTIAL (05/31/2024 8:49 AM CDT) Blood Kalia Fonseca MD HEMATOLOGY ORDERABLES Final Res ult from Last 3 Months Insurance [employer] PPO [facility]
--- OUTSIDE RECORDS SUMMARY | 2024-07-04 10:59 | XMS_ITS | Clinical Summary ---
Author Organization [facility] Address [address] [place] [address] Care Team Providers Care Service Crew Leader Name Role Phone Unavailable Primary Care Provider [...] Td Vaccines ( 1 - Tdap) 12/18/1970 Pneumococcal Vaccine: 50+ Ye ars (1 of 1 - PCV) 12/18/2001 Zoster Vaccines (1 of 2) 12/18/2001 COVID-19 Vaccine ( - 2023-2 5 season) [...]
[2024-07-04 12:33] LABS: Iron 100 ug/dL (49-181); Percent Iron Saturation 36 % (20-50)
== END 2024-07-04 10:24 | disposition home or self-care (01) ==
LOC: ANHLAB 10:24
PROVIDERS: PCP Family Medicine; Visit Provider Internal Medicine Hematology & Oncology
DX: E83.19 Other disorders of iron metabolism (principal)
CPT/HCPCS: 36415; 82728; 83540; 83550; 85025

== ENCOUNTER 2024-09-19 14:03 | Outpatient (CLI) | payer MEDICARE, SELFPAY ==
--- OUTSIDE RECORDS SUMMARY | 2024-09-19 14:15 | XMS_ITS | Clinical Summary ---
Author Organization [facility] Address [address] [place] [id number] Care Team Providers Care Motor Coach Bus Driver Name Role Phone Unavailable Primary Care Provider [...]
--- OUTSIDE RECORDS SUMMARY | 2024-09-19 14:15 | XMS_ITS | Clinical Summary ---
Author Organization [facility] Kayleigh decker Alondra Address [address] [place] [address] Care Team Providers Care Diversity Specialist Name Role Phone Unavailable Primary Care Provider [...] tablet Take 20 mg by mouth daily. Active fenofibrate (LOFIBRA) 160 mg Tablet 160 mg by See Admin Instructions route daily. 5 Active Active Problems No known active problems Encounters Date Type Department Care Team Description 07/07/2024 External Device Data STL ABSTRACTION Provider, Abstract 07/07/2024 External Device Data STL ABSTRACTION Provider, Abstract 07/07/2024 Orders Only [facility] Oncology and Hematology [facility] [address] [place] [address] Kalia Fonseca MD 07/06/2024 External Device Data STL ABSTRACTION Provider, Abstract 07/06/2024 Telephone [facility] On[facility] Hematology [facility] [address] [place] [address] Kalia Fonseca MD Lab Results 06/21/2024 4:00 PM CDT Telephone Check Up [facility] Oncology and Hematology - Feng [address] [facility] [address] [place] [address] Kalia Fonseca MD Iron overload [...] on file 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 Gender Identity Not on file Sexual Orientation [...] 1:30 PM CDT Height 170.2 cm (5' 7) 05/31/2024 1:30 PM CDT Body Mass Index 32.23 05/31/2024 1:30 PM CDT Plan of Treatment Upcoming Encounters Date Type Department Care Team (Late st Contact Info) Description 09/26/2024 2:30 PM CDT Office Visit [facility] Oncology and Hematology - [address] [place] [address] Kalia Fonseca MD [address] [facility] [employer] [address] [place] [address] Health Maintenance Due Date Last Done Comments DTAP/TDAP/TD VACCINES (1 - Tdap) 12/18/1970 COLORECTAL SCREENING 12/18/1996 Colorectal Cancer Screening 12/18/1996 FIT-DNA Q 3 years 12/18/1996 FIT/FOBT Q 1 year 12/18/1996 Flex Sig/CT Colonography Q 5 years 12/18/1996 PNEUMOCOCCAL VACCINE 50+ YEARS (1 of 1 - PCV) 12/19/19 02 ZOSTER VACCINE (1 of 2) 12/18/2001 [place] Prev entative Visit/Annual Wellness Visit 02/17/2024 INFLUENZA VACCINE (#1) 2024 RSV VACCINE (60+ or ) (1 - 1-dose 75+ series) 12/18/2026 Procedures Procedure Name Priority Date/Time Associated Diagnosis Comments IRON LEVEL Routine 07/04/2024 4:22 PM CDT CBC WITH DIFFERENTIAL Routine 07/04/2024 4:12 PM CDT from Last 3 Months Results * IRON LEVEL (07/04/2024 4:22 PM CDT) Blood Kalia Fonseca MD CHEMISTRY ORDERABLES Final Resu lt * CBC WITH DIFFERENTIAL (07/04/2024 4:12 PM CDT) Blood us Kalia Fonseca MD HEMATOLOGY ORDERABLES Final Res ult from Last 3 Months Insurance AET[employer] O [facility]
[2024-09-19 14:16] LABS: Hematocrit 35.5 % (42.0-52.0); Hemoglobin 12.4 g/dL (14.0-18.0); Immature Granulocyte Percent A 0.4 % (0-0.5); Lymphocytes Absolute Auto 1.50 K/mm3 (0.9-3.2); Mean Corpuscular HGB Conc 34.9 g/dl (32-36); Mean Corpuscular Hemoglobin 33.5 pg (26-34); Mean Corpuscular Volume 95.9 fl (80-100); Nucleated Red Blood Cells Absolute Auto 0.000 K/mm3 (0.0-0.012); Nucleated Red Blood Cells Perc 0.0 % (0.0-0.2); Platelet Count Result 252 k/mm3 (150-375); Red Blood Count 3.70 M/mm3 (4.6-6.20); White Blood Count 6.8 K/mm3 (4.5-10.0)
[2024-09-19 15:37] LABS: Iron 131 ug/dL (49-181)
[2024-09-19 16:08] LABS: Percent Iron Saturation 41 % (20-50)
[2024-09-19 16:30] LABS: Ferritin 330.00 ng/mL (11.1-264)
== END 2024-09-19 14:04 | disposition home or self-care (01) ==
LOC: ANHLAB 14:04
PROVIDERS: PCP Family Medicine; Visit Provider Internal Medicine Hematology & Oncology
DX: E83.19 Other disorders of iron metabolism (principal)
CPT/HCPCS: 36415; 82728; 83540; 83550; 85025

== ENCOUNTER 2025-01-25 11:52 | Outpatient (CLI) | payer MEDICARE, SELFPAY ==
[2025-01-25 12:07] LABS: Hematocrit 39.4 % (42.0-52.0); Hemoglobin 13.6 g/dL (14.0-18.0); Mean Corpuscular HGB Conc 34.5 g/dl (32-36); Mean Corpuscular Hemoglobin 33.7 pg (26-34); Mean Corpuscular Volume 97.5 fl (80-100); Platelet Count Result 275 k/mm3 (150-375); Red Blood Count 4.04 M/mm3 (4.6-6.20); White Blood Count 7.5 K/mm3 (4.5-10.0)
[2025-01-25 17:02] LABS: Iron 160 ug/dL (49-181)
[2025-01-25 17:47] LABS: Ferritin 333.00 ng/mL (11.1-264)
[2025-01-25 18:04] LABS: Percent Iron Saturation 53 % (20-50)
[2025-01-25 18:06] LABS: Vitamin B12 853.0 pg/mL (239-931)
== END 2025-01-25 11:53 | disposition home or self-care (01) ==
LOC: ANHLAB 11:53
PROVIDERS: PCP Family Medicine; Visit Provider Internal Medicine Hematology & Oncology
DX: D64.9 Anemia, unspecified (principal); E83.19 Other disorders of iron metabolism
CPT/HCPCS: 36415; 82607; 82728; 82746; 83540; 83550; 85027

== ENCOUNTER 2025-01-28 14:20 | Emergency (ER) | payer MEDICARE, SELFPAY ==
[2025-01-28 14:34] VITALS: BP 151/69; PULSE 69; RESP 16; TEMP 36.3; O2SAT 99
--- NOTE | 2025-01-28 14:44 | ED.BACK ---
HPI - Back Pain/Injury General Chief Complaint: Back Pain/Injury Stated Complaint: strained back patient presents to the [facility] with complaints of several days of right-sided lower back pain. Patient noted he has had pain similar to this in the past and been on steroids which resolved the pain. Patient noted having herniated discs in lumbar spine. Of note patient also reports chasing a paper that blew away from him and the wind and the pain started shortly after this. Denies fall, trauma, numbness, tingling, urinary symptoms or radiation of pain Related Data Home Medications ?Medication ?Instructions ?Recorded ?Confirmed ?Last Taken ?Type omega 5-jii-qce-fish oil 1,000 mg 1 cap PO DAILY 05/30/24 01/28/25 Unknown History (120 mg-180 mg) capsule (Fish Oil) mecobalamin (vitamin B12) 1,000 1,000 mcg PO DAILY 10/03/24 01/28/25 Unknown History mcg chewable tablet metoprolol succinate 50 mg 50 mg PO DAILY 10/03/24 01/28/25 Unknown History tablet,extended release 24 hr Allergies Allergy/AdvReac Type Severity Reaction Status Date / Time No Known Allergies Allergy Verified 01/28/25 14:31 Review of Systems Constitutional: Constitutional: Reports as per HPI and Reports no additional constitutional complaints Eyes: Eyes: Reports no additional eye complaints ENT: Reports system reviewed and no additional complaints, except as documented Cardiovascular: Cardiovascular: Reports no additional cardiovascular complaints Respiratory: Respiratory: Reports no additional respiratory complaints Gastrointestinal: Gastrointestinal: Reports as per HPI, Denies abdominal pain, Denies diarrhea, Denies nausea and Denies vomiting Genitourinary: Genitourinary: Reports as per HPI, Denies urinary frequency and Denies urinary incontinence Musculoskeletal: Musculoskeletal: Reports as per HPI, Reports back pain, Denies myalgias, Denies arthralgias, Denies joint swelling and Reports muscle cramps Integumentary/Breasts: Skin/Breast: Reports as per HPI, Denies pruritus, Denies erythema and Denies rash Neurologic: Reports as per HPI, Denies numbness and Denies weakness Psychiatric: Psychiatric: Reports no additional psychiatric complaints Endocrine: Endocrine: Reports no additional endocrine complaints Hematologic/Lymphatic: Hematologic/Lymphatic: Reports no additional hematologic/lymphatic complaints Allergic/Immunologic: Allergic/Immunologic: Reports no additional allergic/immunologic complaints PMFSH Past Medical History Medical History Hereditary hemochromatosis (~05/2024) heterozygous Syncope and collapse (~09/2023) in hot tub. cardiac and neuro workup normal KAY (obstructive sleep apnea) (~01/2024) Dyslipidemia Essential (primary) hypertension Surgical History Surgical History H/O cataract removal with insertion of prosthetic lens b/l - 11/2016 History of carpal tunnel release of both wrists (~2015) Hx of appendectomy (~1961) Family History Family History Father Family history of diabetes mellitus in first degree relative Family history of heart disease in male family member before age 55 Diabetes mellitus Family history of cardiovascular disease Social History Social History Social History: Former smoker Smoking packs per day: 0.5 Smoking cigarettes per day: 10.0 Years smoked: 8 Smoking pack-years: 4.00 Smoking status: Former smoker (light smoker) Tobacco type: cigarettes Smoking end date: 02/16/15 Alcohol intake: current Drinks per week: 20 Substance use: never Lack of Transportation: No Lack of Food: Never True Current Housing: I Have Housing Concerned About Future Housing: No Difficulty Paying Gas/Electric Bills: No Difficulty Paying for Meds: No Currently Unemployed: No Education: High School Diploma/GED Difficulty w/ Childcare or Family Care: No Exam Const: General: healthy appearing and no acute distress Nutritional Appearance: well nourished Orientation/consciousness: patient oriented x3 Limitations: no limitations Resp: Effort & Inspection: normal respiratory effort Auscultation: clear to auscultation bilaterally Cardio: Rate: regular rate Rhythm: regular rhythm Back/Spine/Pelvis: Back: no CVA tenderness Other: no lumbar vertebral tenderness, right-sided paraspinal tenderness noted. No SI joint or buttocks tenderness noted. Straight leg raise is negative Skin: General skin exam: normal color Rashes: no rashes Wounds: no wounds Neuro: General: patient oriented x3 and moves all extremities Speech: normal speech Gait exam (Neuro): Normal gait present Extrem: General: normal to inspection and no clubbing, cyanosis or edema Psych: Mental Status: mental status grossly normal Affect: normal affect Attitude: cooperative Course Course Level of Care: Express Care Visit Vital Signs Vital signs: Vital Signs Temperature 97.3 F L 01/28/25 14:34 Pulse Rate 69 01/28/25 14:34 Respiratory Rate 16 01/28/25 14:34 Blood Pressure 151/69 H 01/28/25 14:34 Pulse Oximetry 99 01/28/25 14:34 Temperature 97.3 F L 01/28/25 14:34 Pulse Rate 69 01/28/25 14:34 Respiratory Rate 16 01/28/25 14:34 Blood Pressure 151/69 H 01/28/25 14:34 Pulse Oximetry 99 01/28/25 14:34 MDM MDM Narrative Medical decision making narrative: previously t had similar symptoms in use steroid pack. Will send this to the pharmacy with muscle relaxers The patient was evaluated by myself in the express care. History is obtained from patient who is an independent historian and physical exam was performed. Available medical records were reviewed at this time. Exam findings show no acute concerns or changes; patient is non-toxic appearing and is in no distress. Patient is appropriate for outpatient treatment and follow-up. I have evaluated and discussed social determinants of health with the patient that could potentially impact subsequent diagnosis and treatment plans. Differential diagnosis and treatment plan were discussed with the patient. Patient agrees with discussion and after shared medical decision making agrees with plan of care. All questions were answered to the patient's satisfaction. Differential Diagnosis Differential Diagnosis: back pain, muscle strain, kidney stone, Medical Records I have reviewed the following patient records and this information was taken into consideration when formulating the assessment and plan.: previous labs, previous ER visits, previous hospitalizations and previous clinic visits Discharge Plan Discharge Clinical Impression: Strain of lumbar region Patient Disposition: Home Condition: Stable Instructions: Antibiotic Form, Acute Low Back Pain (ED), Lumbar Radiculopathy (ED) Additional Instructions: Take pain medications as directed. Take ibuprofen as directed to decrease inflammation and to help pain. Take Baclofen (muscle relaxer) as directed. Do not drink, drive, operate machinery, or do anything dangerous while taking this medication Take Tramadol as directed for more severe pain. Do not drink, drive, operate machinery, or do anything dangerous while taking this medication. Exercise:Combine aerobic exercise, like walking or swimming, with specific exercises to keep the muscles in your back and abdomen strong and flexible. Proper Lifting:Be sure to lift heavy items with your legs, not your back. Do not bend over to pick something up. Keep your back straight and bend at your knees. Weight:Maintain a healthy weight. Being overweight puts added stress on your lower back. Avoid Smoking:Both the smoke and the nicotine cause your spine to age faster than normal. Proper Posture:Good posture is important for avoiding future problems. A therapist can teach you how to safely stand, sit, and lift. Use warm moist heat to help with pain. Follow up with Primary provider in 2-3 days, This may become a chronic condition and they will be the one to help manage your pain and order additional testing. Follow-up with your doctor for further care and evaluation or seek ER if you develop problems with bladder/bowel function, weakness or loss of feeling in one or both of your legs. Patient Language: Honduran Prescriptions: New methylprednisolone [Medrol (John)] 4 mg tablets,dose pack See Rx Instructions .ROUTE .COMPLEX Qty: 21 0RF Rx Instructions: for 6 days tizanidine 4 mg capsule 4 mg PO TID PRN (Reason: muscle spasticity) Qty: 30 0RF No Action omega 3-mgf-bgr-fish oil [Fish Oil] 1,000 (120-180) mg capsule 1 cap PO DAILY metoprolol succinate 50 mg tablet extended release 24 hr 50 mg PO DAILY mecobalamin (vitamin B12) 1,000 mcg tablet,chewable 1,000 mcg PO DAILY (DME) CPAP See Rx Instructions .Route .MEDSUPPLY Qty: 1 0RF Rx Instructions: CPAP and supplies use as directed CPAP 6 cm H2O, size medium Resmed N30i mask, CPAP filters/tubing and heated humidity. fenofibrate 160 mg tablet 160 mg PO DAILY Qty: 90 1RF atorvastatin [Lipitor] 20 mg tablet 20 mg PO QHS Qty: 90 1RF ropinirole 0.5 mg tablet 0.5 mg PO DAILY Qty: 90 1RF lisinopril-hydrochlorothiazide 20-25 mg tablet 1 tablet PO DAILY Qty: 90 1RF Follow-up/Referrals: Ventura Sosa MD [Primary Care Provider, Family Practice] Time of Disposition: 14:46
== END 2025-01-28 14:50 | disposition home or self-care (01) ==
PROVIDERS: Emergency Provider Nurse Practitioner Family; PCP Family Medicine
DX: S39.012A Strain of muscle, fascia and tendon of lower back, initial encounter (principal); X50.3XXA Overexertion from repetitive movements, initial encounter; I10 Essential (primary) hypertension; E78.5 Hyperlipidemia, unspecified
CPT/HCPCS: 99213; G0463